=== PATIENT | male | born 1980 | race Caucasian/White ===

== ENCOUNTER 2017-05-28 17:14 | Emergency (ER) | payer OTHER ==
[2017-05-28] MEDS ORDERED: 0.9 % SODIUM CHLORIDE 1,000 ML IV ONE ×2 (17:21→18:34)
[2017-05-28] MEDS ORDERED: IPRATROPIUM/ALBUTEROL SULFATE 3 ML AMPUL.NEB NEB STA (17:22)
[2017-05-28] MEDS ORDERED: ACETAMINOPHEN 500 MG TABLET PO ONE (17:23)
[2017-05-28 17:40] LABS: BASOPHILS % 1.4 (0.0-1.5); EOSINOPHILS % 1.6 % (0.0-6.8); MEAN CORPUSCULAR HEMOGLOBIN 31.7 pg (28.0-34.0); MEAN CORPUSCULAR VOLUME 87.4 fl (80.0-100.0); MONOCYTES % 4.1 % (0.0-11.0); NEUTROPHILS # 5.9 # k/uL (1.4-7.7)
[2017-05-28 17:58] LABS: eGFR (African) > 60; eGFR (Non-African) > 60
--- NOTE | 2017-05-28 18:07 | Diagnostic Imaging Report ---
LI PORTER (CRISTINO) - [facility] [address] [facility].[address] [id number] Report Submission Date: May 28, 2017 5:53:43 PM ANTIQUE CLOCK REPAIRER Patient Study Name: FREDI WETZEL Date: May 28, 2017 5:38:04 PM ANTIQUE CLOCK REPAIRER Modality Type: CR Gender: M Description: CHEST : 78 Institution: [facility] Physician: LI PORTER) - ER Examination: PA and lateral chest. History: Evaluate lung lakhani. Comparison exam: None provided Findings: PA lateral chest demonstrate a normal cardiac and mediastinal silhouette. Mild haziness involving the right cardiac margins due to pectus excavatum identified on lateral view. No focal infiltrate. No blunting of the costophrenic margins. Osseous structures are otherwise appropriate for age. Impression: No acute pulmonary process. Electronically signed on May 28, 2017 5:53:43 PM ANTIQUE CLOCK REPAIRER by: Faustino WEST
[2017-05-28] MEDS ORDERED: KETOROLAC TROMETHAMINE 30 MG/1ML VIAL IVP ONE (18:14)
--- NOTE | 2017-05-28 18:23 | ED Physician Documentation ---
Upper Respiratory Symptoms - HISTORIAN Historian: patient - HPI Stated Complaint: diff breathing Chief Complaint: Cough/ Upper Respiratory Onset: other (yesterday) Context: denies: recent foreign travel, insect bite(s), tick(s), recent chemotherapy, multiple patients, same sx Severity: moderate Associated Symptoms: fever, chills, productive cough Further Comments: yes (37 year old male patient presents with complaints of cough, fever, fatigue and body aches. Patient reports symptoms started yesterday. "I think I have pneumonia". Temp on arrival 104.7) - ROS CONST/EYES: weakness CVS/RESP: other (cough). denies: chest pain, shortness of breath, palpitations LYMPH: denies: leg swelling, rash, swollen glands, ankle swelling, other GI/: none NEURO/PSYCH: denies: fainting, dizziness, confusion, anxiety, depression, other MS/SKIN: muscle aches - PAST HX Lung Disease: none PE Risk Factors: none Surgeries/Procedures: none Allergies/Adverse Reactions: Allergies Allergy/AdvReac Type Severity Reaction Status Date / Time No Known Allergies Allergy Verified 05/28/17 17:58 Home Medications: Ambulatory Orders Medication Instructions Recorded Albuterol Sulfate [Proair HFA] 1 inh IH Q4H PRN #1 hfa.aer.ad 05/28/17 Oseltamivir Phosphate [Tamiflu] 75 mg PO BID #10 capsule 05/28/17 - SOCIAL HX Smoking History: cigarettes - FAMILY HX Family History: denies: none - VITAL SIGNS Vital Signs: Vital Signs Temp Pulse Resp BP Pulse Ox 98.5 F 83 18 134/78 92 05/28/17 19:55 05/28/17 19:55 05/28/17 19:55 05/28/17 19:55 05/28/17 19:55 - REVIEWED ASSESSMENTS Nursing Assessment Reviewed: Yes Vitals Reviewed: Yes Progress - Progress Progress: Patient presents with temp 104.7 - IV fluids and tylenol given on arrival. Reviewed lab results and Positive Influenza A with patient and . 1829 Temp down to 102.5, will give additional IV fluids and toradol. RA Sat 89- 91%. 1944 Sat improved and temp resolved after second liter of IV fluids. RA Sat 93- 94%; discharged home. Reviewed discharge instructions, questions answered. ED Results Lab/Radiology - Lab Results Lab Results: Lab Results 05/28/17 05/28/17 17:35 17:35 WBC 7.00 K/ul K/ul (4.00-12.00) RBC 5.28 M/ul H M/ul (3.90-5.20) Hgb 16.7 g/dL g/dL (12.0-18.0) Hct 46.2 % % (37.0-53.0) MCV 87.4 fl fl (80.0-100.0) MCH 31.7 pg pg (28.0-34.0) MCHC 36.2 g/dL H g/dL (30.0-36.0) RDW 12.7 % % (11.3-14.3) Plt Count 198 K/mm3 K/mm3 (130-400) Neut % (Auto) 83.5 % H % (39.0-79.0) Lymph % (Auto) 8.3 % L % (16.0-50.0) [place] % (Auto) 4.1 % % (0.0-11.0) Eos % (Auto) 1.6 % % (0.0-6.8) Baso % (Auto) 1.4 (0.0-1.5) Neut # (Auto) 5.9 # k/uL # k/uL (1.4-7.7) Lymph # (Auto) 0.6 # k/uL # k/uL (0.6-4.0) [place] # (Auto) 0.3 # k/uL # k/uL (0.0-0.9) Eos # (Auto) 0.1 # k/uL # k/uL (0.0-0.6) Baso # (Auto) 0.1 # k/uL # k/uL (0.0-0.5) Reactive Lymphs % 1.2 % % (0.0-5.0) Reactive Lymphs # 0.1 # k/uL # k/uL (0.0-0.8) Sodium 130 mmol/L L mmol/L (136-145) Potassium 3.9 mmol/L mmol/L (3.5-5.1) Chloride 96 mmol/L L mmol/L (98-107) Carbon Dioxide 22 mmol/L mmol/L (22-30) BUN 9 mg/dL mg/dL (9-20) Creatinine 1.10 mg/dL mg/dL (0.66-1.25) Estimated Creat Clear 134 Est GFR ( Amer) > 60 (60 - ) Est GFR (Non-Af Amer) > 60 (60 - ) Glucose 109 mg/dL H mg/dL (74-106) Lactate 1.3 U/L U/L (0.7-2.1) Calcium 9.3 mg/dL mg/dL (8.4-10.2) Total Bilirubin 0.4 mg/dL mg/dL (0.2-1.3) AST 28 U/L U/L (15-46) ALT 35 U/L U/L (13-69) Alkaline Phosphatase 116 U/L U/L (38-126) Total Protein 8.2 g/dL g/dL (6.3-8.2) Albumin 4.6 g/dL g/dL (3.5-5.0) - Orders Orders: ED Orders Category Date Time Status Continuous EKG monitoring Q30M Care 05/28/17 17:21 Active Continuous Pulse Oximetry Q30M Care 05/28/17 17:[address] IV Lock 1T Care 05/28/17 17:21 Active CHEST P.A.&LAT 2 VIEWS [RAD] Stat Exams 05/28/17 Completed BLOOD CULTURE Stat Lab 05/28/17 17:35 Received CBC/PLATELET/DIFF Stat Lab 05/28/17 17:35 Completed CMP Stat Lab 05/28/17 17:35 Completed INFLUENZA A&B Stat Lab 05/28/17 17:57 Ordered LACTATE DAILY Lab 05/28/17 17:35 Completed Rapid Strep [GRP A STREP SCREEN] Stat Lab 05/28/17 17:21 Ordered UA W/MICRO IF INDICATED Stat Lab 05/28/17 17:21 Ordered 0.9 % Sodium Chloride [Normal Saline] 1,000 ml Med 05/28/17 17:21 Discontinued IV NOW 0.9 % Sodium Chloride [Normal Saline] 1,000 ml Med 05/28/17 18:34 Discontinued IV NOW Acetaminophen [Tylenol Extra Strength] Med 05/28/17 17:23 Discontinued 1,000 mg PO NOW ONE Albuterol Sulfate [Ventolin] Med 05/28/17 18:34 Discontinued 2.5 mg NEB NOW ONE Ipratropium/Albuterol Sulfate [Duoneb] Med 05/28/17 17:22 Discontinued 3 ml NEB STAT STA Ketorolac Tromethamine [Toradol] Med 05/28/17 18:14 Discontinued 30 mg IVP NOW ONE HI FLOW NEBULIZER TX - INITIAL Routine Ther 05/28/17 Completed HIGH FLOW NEBULIZER Routine Ther 05/28/17 Completed HIGH FLOW NEBULIZER TX Routine Ther 05/28/17 Completed OXIMETRY-SINGLE CHECK Routine Ther 05/28/17 Completed OXIMETRY-SINGLE CHECK Routine Ther 05/28/17 Completed Upper Respiratory Symptoms - EXAM General Appearance: moderate distress EENT: eyes nml inspection, nml ENT inspection, lids & conjunct. nml, PERRL, ear nml, nose nml, pharynx nml, airway nml Respiratory: no resp. 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 The flu can last ten to 14 days. Rest Have plenty of sleep and rest. Stay away from others while you have a cold or flu. Keep hydrated (drink plenty of fluids) This will help keep your throat moist and replace fluid lost due to a fever and sweating. Plenty of water is best. Avoid caffeine and alcohol as they will make you more dehydrated. Eat soft food If you have a sore throat soft foods are easier to swallow. Foods such as chicken soup may help a sore throat and reduce mucous (sticky fluid). follow up clerk an over the counter decongestant such as pseudoped, dayquil and Nyquil at your pharmacy. You may want to try Vicks rub on your chest and/or feet. ( Caution: Dayquil and Nyquil contain 325mg of tyelnol/acetaminophen per tablespoon) Cough drops as needed for cough and sore throat. Increase your fluid intake juices, hot tea, non-caffeinated beverages Vitamin C may be helpful in decreasing the length of your cold. Use a humidifier in the room where you sleep. You can also sit in a steam filled bathroom 1-2 times a day. Tylenol every 4 hours 650mg -1000mg (do not exceed 4000mg in 24 hours) as needed for fever, pain and body aches. Alternate with Ibuprofen Ibuprofen 600-800mg every 6 hours as needed for fever, pain and body aches. See your primary care doctor if your symptoms become worse or do not improve in the next 2-3 days. follow up clerk your Tamiflu and start it today. Condition: Stable Disposition: 01 HOME, SELF-CARE Decision to Admit: NO Decision Time: 18:19
[2017-05-28] MEDS ORDERED: ALBUTEROL SULFATE 2.5 MG/3 ML AMPUL.NEB NEB ONE (18:34)
[2017-05-28 20:03] VITALS: BP 134/78
== END 2017-05-28 19:55 | disposition home or self-care (01) ==
LOC: ED 17:14
DX: J11.1 Influenza due to unidentified influenza virus with other respiratory manifestations (principal)
CPT/HCPCS: 71020; 80053; 83605; 85025; 87040; 87400; 94640; 94760; 96361; 96374; 99283; J1885; J7030; S1016